=== PATIENT | male | born 2000 | race Caucasian/White ===

== ENCOUNTER 2020-02-08 08:37 | Emergency (ER) | payer BC ==
[2020-02-08] MEDS ORDERED: Ondansetron 4 MG/2 ML SDV IVPUSH ONE (08:55)
[2020-02-08] MEDS ORDERED: Sodium Chloride 0.9% 1,000 ML IV SCH ×2 (09:00→09:45)
--- NOTE | 2020-02-08 09:02 | EDM.PDOC ---
ED HPI GENERAL MEDICAL PROBLEM - General Chief Complaint: Gastrointestinal Problem Stated Complaint: COVID SYMPTOMS Time Seen by Provider: 02/08/20 08:40 Source of Information: Reports: Patient History Limitations: Reports: No Limitations - History of Present Illness INITIAL COMMENTS - FREE TEXT/NARRATIVE: pt states he has been ill for 2 days . states he has had fever , cough ( minimally productive ), body aches and pains, has had vomiting the whole night and weakness . States he has COVID symptoms Was at a wedding last tuesday : 5 days ago , fell ill after 2-3 days has been gradually getting worse Onset: Gradual Onset Date: 02/05/20 Duration: Day(s): (3), Getting Worse Location: Reports: Generalized Quality: Reports: Ache Severity: Moderate Improves with: Reports: Cold Therapy Context: Reports: Sick Contact Associated Symptoms: Reports: Cough, Fever/Chills, Headaches, Loss of Appetite, Malaise, Weakness Treatments CEMENT RUBBER: Reports: Home Treatments, Other (see below) body aching and headache Pain Score (Numeric/FACES): 7 - Related Data Allergies Allergy/AdvReac Type Severity Reaction Status Date / Time No Known Allergies Allergy Verified 02/08/20 09:27 Home Meds: Home Meds Azithromycin [Zithromax] 500 mg PO DAILY #5 tab 02/07/20 [Rx] Hydroxychloroquine Sulfate 200 mg PO BID #8 tablet 02/08/20 [Rx] Ondansetron [Zofran ODT] 4 mg PO Q6H PRN #20 tab.dis 02/08/20 [Rx] Zinc Sulfate 220 mg PO DAILY #30 capsule 02/08/20 [Rx] ED ROS GENERAL - Review of Systems Review Of Systems: See Below Constitutional: Reports: Fever, Chills, Malaise, Weakness, Fatigue, Night Sweats, Diaphoresis HEENT: Reports: Sinus Problem, Throat Pain. Denies: Nosebleed Respiratory: Reports: Cough, Sputum. Denies: Shortness of Breath, Wheezing, Pleuritic Chest Pain Cardiovascular: Reports: Dyspnea on Exertion Endocrine: Reports: Fatigue GI/Abdominal: Reports: Anorexia, Diarrhea, Decreased Appetite, Nausea : Reports: No Symptoms Musculoskeletal: Reports: Muscle Pain Skin: Reports: No Symptoms Neurological: Reports: No Symptoms Psychiatric: Reports: Anxiety Hematologic/Lymphatic: Reports: No Symptoms ED EXAM, GI/ABD - Physical Exam Exam: See Below Exam Limited By: No Limitations General Appearance: Alert, WD/WN, No Apparent Distress, Anxious, Other (ill looking) Eyes: Bilateral: EOMI Ears: Normal TMs Nose: Clear Rhinorrhea Throat/Mouth: Normal Oropharynx Head: Atraumatic, Normocephalic Neck: Supple, Non-Tender Respiratory/Chest: No Respiratory Distress, Lungs Clear Cardiovascular: Normal Peripheral Pulses, Regular Rate, Rhythm GI/Abdominal Exam: Soft, Non-Tender, No Distention, Abnormal Bowel Sounds (hyperactive Bowel sounds) Back Exam: Normal Inspection Extremities: Normal Inspection, Normal Range of Motion Neurological: Alert, Oriented, CN II-XII Intact, Normal Cognition Psychiatric: Normal Affect Skin Exam: Warm, Dry Course - Vital Signs Last Recorded V/S: Last Vital Signs Temp 38.8 C H 02/08/20 09:59 Pulse 102 H 02/08/20 08:37 Resp 20 02/08/20 08:37 BP 141/56 H 02/08/20 08:37 Pulse Ox 98 02/08/20 08:37 - Orders/Labs/Meds Orders: Active Orders 24 hr Category Date Time Status Sodium Chloride 0.9% [Normal Saline] 1,000 ml Med 02/08/20 09:45 Active IV ASDIRECTED Isolation [COMM] Routine Oth 02/08/20 09:24 Ordered Medication Orders Sodium Chloride (Normal Saline) 1,000 mls @ 999 mls/hr IV ASDIRECTED SARINA Last Admin: 02/08/20 09:50 Dose: 999 mls/hr Documented by: [id number] Labs: Laboratory Tests 02/08/20 02/08/20 02/08/20 Range/Units 09:03 09:14 09:15 WBC (4.5-12.0) X10-3/uL RBC (4.30-5.75) x10(6)uL Hgb (13.5-17.8) g/dL Hct (30.0-51.3) % MCV (80-96) fL MCH (27.7-33.6) pg MCHC (32.2-35.4) g/dL RDW (11.5-15.5) % Plt Count (125-369) X10(3)uL PT (9.0-11.1) sec INR (1.00-1.24) D-Dimer, Quantitative (0.0-0.59) mg/LFEU Sodium 135 (135-145) mmol/L Potassium 4.2 (3.5-5.3) mmol/L Chloride 97 L (100-110) mmol/L Carbon Dioxide 27 (21-32) mmol/L BUN 11 (7-18) mg/dL Creatinine 1.2 (0.70-1.30) mg/dL Est Cr Clr Drug Dosing 114.49 mL/min Estimated GFR (MDRD) > 60 (>60) BUN/Creatinine Ratio 9.2 (9-20) Glucose 119 H (80-116) mg/dL Lactic Acid (0.4-2.0) mmol/L Calcium 9.0 (8.6-10.2) mg/dL SARS-CoV-2 RNA (SUSAN) Positive H (NEGATIVE) Group A Strep (PCR) Negative (NEGATIVE) 02/08/20 02/08/20 02/08/20 Range/Units 09:15 09:15 09:15 WBC 8.9 (4.5-12.0) X10-3/uL RBC 5.14 (4.30-5.75) x10(6)uL Hgb 15.9 (13.5-17.8) g/dL Hct 45.8 (30.0-51.3) % MCV 89.2 (80-96) fL MCH 31.0 (27.7-33.6) pg MCHC 34.8 (32.2-35.4) g/dL RDW 12.1 (11.5-15.5) % Plt Count 174 (125-369) X10(3)uL PT 11.6 H (9.0-11.1) sec INR 1.08 (1.00-1.24) D-Dimer, Quantitative 0.58 (0.0-0.59) mg/LFEU Sodium (135-145) mmol/L Potassium (3.5-5.3) mmol/L Chloride (100-110) mmol/L Carbon Dioxide (21-32) mmol/L BUN (7-18) mg/dL Creatinine (0.70-1.30) mg/dL Est Cr Clr Drug Dosing mL/min Estimated GFR (MDRD) (>60) BUN/Creatinine Ratio (9-20) Glucose (80-116) mg/dL Lactic Acid 1.1 (0.4-2.0) mmol/L Calcium (8.6-10.2) mg/dL SARS-CoV-2 RNA (SUSAN) (NEGATIVE) Group A Strep (PCR) (NEGATIVE) Meds: Medications Generic Name Dose Route Start Last Admin Trade Name Freq PRN Reason Stop Dose Admin Sodium Chloride 1,000 mls @ 999 mls/hr 02/08/20 09:45 02/08/20 09:50 Normal Saline IV 999 mls/hr ASDIRECTED SARINA Administration Discontinued Medications Generic Name Dose Route Start Last Admin Trade Name Freq PRN Reason Stop Dose Admin Acetaminophen 1,000 mg 02/08/20 09:44 02/08/20 09:50 Tylenol Extra Strength PO 02/08/20 09:45 1,000 mg ONETIME ONE Administration Sodium Chloride 1,000 mls @ 125 mls/hr 02/08/20 09:00 02/08/20 09:11 Normal Saline IV 125 mls/hr ASDIRECTED SARINA Administration Azithromycin 500 mg/ Sodium 250 mls @ 250 mls/hr 02/08/20 09:44 02/08/20 09:50 Chloride IV 02/08/20 10:43 250 mls/hr ONETIME ONE Administration Ondansetron HCl 8 mg 02/08/20 08:55 02/08/20 09:11 Zofran IVPUSH 02/08/20 08:56 8 mg ONETIME ONE Administration - Re-Assessments/Exams Free Text/Narrative Re-Assessment/Exam: 02/08/20 09:04 labs ordered IVF difficult to start 02/08/20 11:42 Was given IVF 1 liter, IV zofran and azithromycin reviewed labs: tested positive for COVID Departure - Departure Time of Disposition: 11:45 Disposition: Home, Self-Care 01 Condition: Fair Clinical Impression: COVID-19 virus infection, Bronchitis, Gastritis - Discharge Information *PRESCRIPTION DRUG MONITORING PROGRAM REVIEWED*: Not Applicable *COPY OF PRESCRIPTION DRUG MONITORING REPORT IN PATIENT BASHIR: Not Applicable Prescriptions: Hydroxychloroquine Sulfate 200 mg PO BID #8 tablet Zinc Sulfate 220 mg PO DAILY #30 capsule Azithromycin [Zithromax] 500 mg PO DAILY #5 tab Ondansetron [Zofran ODT] 4 mg PO Q6H PRN #20 tab.dis PRN Reason: Nausea Instructions: COVID-19 Frequently Asked Questions, Ondansetron tablets, Azithromycin tablets, COVID-19: How to Protect Yourself and Others - [facility], Zinc Salts tablets or capsules, Hydroxychloroquine tablets, Prevent the Spread of COVID-19 if You Are Sick - [facility] Referrals: PCP,None [Primary Care Provider] - Forms: ED Department Discharge Additional Instructions: 1) use tylenol 1000mg 4 times a day as needed for fever 2) Increase fluid intake 3) Stay quarantined for 14 days 4) use mask and social distancing 5) Follow up with your PCP ( zoom) Sepsis Event Note (ED) - Focused Exam Vital Signs: Vital Signs Temp Temp Pulse Resp BP Pulse Ox 02/08/20 09:59 38.8 C H 02/08/20 08:37 36.9 C 102 H 20 141/56 H 98 - My Orders Last 24 Hours: My Active Orders 02/08/20 09:24 Isolation [COMM] Routine 02/08/20 09:45 Sodium Chloride 0.9% [Normal Saline] 1,000 ml IV ASDIRECTED - Assessment/Plan Last 24 Hours: My Active Orders 02/08/20 09:24 Isolation [COMM] Routine 02/08/20 09:45 Sodium Chloride 0.9% [Normal Saline] 1,000 ml IV ASDIRECTED
[2020-02-08] MEDS ORDERED: Azithromycin 500 MG in Sodium Chloride 0.9% 250 ML IV ONE (09:44)
[2020-02-08] MEDS ORDERED: Acetaminophen 500 MG Tab PO ONE (09:44)
--- NOTE | 2020-02-08 12:01 | CR ---
INDICATION: Cough. CHEST, ONE VIEW: A single AP upright portable view of the chest was obtained 02/08/20 - no comparison. Heart, mediastinum and bony thorax were unremarkable. A definite active infiltrate or effusion was not identified. IMPRESSION: No acute process. MTDD
== END 2020-02-08 12:15 | disposition home or self-care (01) ==
LOC: FB.ED 08:37
DX: U07.1 COVID-19 (principal); J40 Bronchitis, not specified as acute or chronic; K29.70 Gastritis, unspecified, without bleeding
CPT/HCPCS: 36415; 71045; 80048; 83605; 85027; 85379; 85610; 87635; 87651; 87804; 96365; 96375; 99283; A9270; J0456; J2405; J7030; J7050; 99284; U0002